=== PATIENT | male | born 1975 | race Caucasian/White ===

== ENCOUNTER 2016-08-23 11:39 | Emergency (ER) | payer SELFPAY ==
[2016-08-23] MEDS ORDERED: Sodium Chloride 0.9% 2.5 ML Syringe FLUSH PRN (11:49)
[2016-08-23] MEDS ORDERED: Sodium Chloride 0.9% 10 ML Syringe FLUSH PRN (11:49)
[2016-08-23] MEDS ORDERED: Famotidine 20 MG/2 ML SDV IVPUSH ONE (11:49)
[2016-08-23] MEDS ORDERED: Aspirin 81 MG Tab.Chew PO ONE (11:49)
[2016-08-23] MEDS ORDERED: Sodium Chloride 0.9% 1,000 ML IV ONE (11:50)
[2016-08-23] MEDS ORDERED: Nitroglycerin 0.4 MG Tab.SL SL PRN (11:50)
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
[2016-08-23 12:25] LABS: CHLORIDE,CL 106 mmol/L (98-110); SODIUM,NA 138 mmol/L (136-146)
--- NOTE | 2016-08-23 13:03 | CR ---
EXAMINATION: Portable chest radiograph. HISTORY: Chest pain. FINDINGS: The trachea is midline. The cardiomediastinal silhouette is within normal limits. No pulmonary infil trates, effusions or pneumothorax. Osseous structures appear unremarkable. IMPRESSION: No acute cardiopulmonary process.
[2016-08-23 14:52] VITALS: BP 109/70
== END 2016-08-23 14:10 | disposition home or self-care (01) ==
LOC: MW.ED 11:39
DX: I24.9 Acute ischemic heart disease, unspecified (principal); Z98.890 Other specified postprocedural states
CPT/HCPCS: 36415; 71010; 80053; 81001; 84484; 85025; 85379; 85610; 93005; 96361; 96374; 99285; A9270; J7040; 99284